=== PATIENT | female | born 1985 | race Caucasian/White ===

== ENCOUNTER 2016-11-15 12:40 | Emergency (ER) | payer OTHER ==
[~2016-11-15] VITALS: Ht 175.3 cm; Wt 122.5 kg
[2016-11-15 13:20] VITALS: BP 139/85
[2016-11-15 14:15] LABS: OBC FLU VALID
--- NOTE | 2016-11-15 14:15 | RAD ---
Chest, 2 views, 11/15/2016: History: Cough The heart size and pulmonary vascularity are normal. The lungs are clear. There is no evidence of pleural fluid. Mild spurring is present in the spine. IMPRESSION: No acute cardiopulmonary abnormality is detected.
[2016-11-15] MEDS ORDERED: BENZ100C PO (14:32)
[2016-11-15] MEDS ORDERED: ONDA4TAB10 SL (14:32)
--- NOTE | 2016-11-15 14:33 | PHYS DOC ---
Past Medical History Past Medical History: No Pertinent History Past Surgical History: Additional Past Surgical Histo: d/c, spinal tap Alcohol Use: Occasionally Drug Use: Marijuana Adult General Chief Complaint Chief Complaint: FLU SYMPTOM HPI HPI Patient is a 31 year old female who presents with body aches, chills vomiting that began 3 days ago. Patient states her son was diagnosed with influenza a couple days ago. Patient denies any fever. Review of Systems Review of Systems Constitutional: Body aches and chills Eyes: Denies change in visual acuity, redness, or eye pain [] HENT: Denies nasal congestion or sore throat [] Respiratory: Cough Cardiovascular: No additional information not addressed in HPI [] GI: Vomiting : Denies dysuria or hematuria [] Musculoskeletal: Denies back pain or joint pain [] Integument: Denies rash or skin lesions [] Neurologic: Denies headache, focal weakness or sensory changes [] Endocrine: Denies polyuria or polydipsia [] Allergies Allergies Allergies Coded Allergies Type Severity Reaction Last Updated Verified No Known Drug Allergies 11/15/16 No Physical Exam Physical Exam Constitutional: Well developed, well nourished, no acute distress, non-toxic appearance. [] HENT: Normocephalic, atraumatic, bilateral external ears normal, oropharynx moist, no oral exudates, nose normal. [] Eyes: PERRLA, EOMI, conjunctiva normal, no discharge. [] Neck: Normal range of motion, no tenderness, supple, no stridor. [] Cardiovascular:Heart rate regular rhythm, no murmur [] Lungs & Thorax: Bilateral breath sounds clear to auscultation [] Abdomen: Bowel sounds normal, soft, no tenderness, no masses, no pulsatile masses. [] Skin: Warm, dry, no erythema, no rash. [] Back: No tenderness, no CVA tenderness. [] Extremities: No tenderness, no cyanosis, no clubbing, ROM intact, no edema. [] Neurologic: Alert and oriented X 3, normal motor function, normal sensory function, no focal deficits noted. [] Psychologic: Affect normal, judgement normal, mood normal. [] Current Patient Data Vital Signs Vital Signs Date Time Temp Pulse Resp B/P Pulse Ox O2 Delivery O2 Flow Rate FiO2 11/15/16 13:20 98.7 95 14 96 Room Air 98.7 Lab Values Laboratory Tests Test 11/15/16 13:30 Influenza Type A Antigen Negative (NEGATIVE) Influenza Type B Antigen Negative (NEGATIVE) EKG EKG [] Radiology/Procedures Radiology/Procedures [] Course & Med Decision Making Course & Med Decision Making Pertinent Labs and Imaging studies reviewed. (See chart for details) Patient is in the ED with symptoms consistent with a viral illness including body aches chills and cough. She is also complaining of vomiting. She states her son was diagnosed with influenza B a couple days ago. Negative influenza A or B. Chest x-ray interpreted by radiologist is negative for any acute findings. Symptoms are viral. Discharged with instructions to push fluids maintain good hand hygiene. Follow-up with PCP in one week. Dragon Disclaimer Dragon Disclaimer This electronic medical record was generated, in whole or in part, using a voice recognition dictation system. Departure Departure Impression: Primary Impression: Viral illness Additional Impressions: Vomiting Cough Disposition: 01 HOME, SELF-CARE Condition: STABLE Referrals: NO PCP (PCP) Follow-up with your own doctor in one week Patient Instructions: Cough, Adult, Nausea and Vomiting Additional Instructions: You were seen with symptoms consistent with a viral illness. Push fluids and maintain good hand hygiene at home. Come back to the ED at any point if symptoms worsen or you have concerning symptoms. Scripts Benzonatate (Tessalon Perle)100 Mg Capsule1 Cap PO TID #30 CAP Prov:LORNA BARROS [employer] 11/15/16 Ondansetron (Zofran Odt)4 Mg Tab.rapdis1 Tab SL Q8HRS #15 TAB Prov:LORNA BARROS [employer] 11/15/16 Problem Qualifiers Additional Impressions: Vomiting Vomiting type: unspecified Vomiting Intractability: non-intractable Nausea presence: unspecified Qualified Code: R11.10 - Vomiting, unspecified LORNA BARROS [employer] Nov 15, 2016 14:32
== END 2016-11-15 14:38 | disposition home or self-care (01) ==
LOC: ER 12:40
DX: B34.9 Viral infection, unspecified (principal); R11.10 Vomiting, unspecified; R05 Cough; R68.83 Chills (without fever); F12.10 Cannabis abuse, uncomplicated
CPT/HCPCS: 71020; 87804; 99285-25